=== PATIENT | male | born 1955 | race Caucasian/White ===

== ENCOUNTER → 2017-06-01 | Outpatient (CLI) | payer BC, OTHER ==
[~2017-06-01] MED LIST: ANDROGEL1% T; BISOPROLOL10 MG PO; BUPROPION100 MG PO; LISINOPRIL/HCTZ1 TA3 PO; LOVASTATIN20 MG PO
[2017-06-02 15:07] LABS: TESTOSTERONE FREE, (DIRECT) <0.2 pg/mL (6.6-18.1)
== END | disposition home or self-care (01) ==
LOC: LAB 15:48
PROVIDERS: Internal Medicine
DX: E29.1 Testicular hypofunction (principal); E29.9 Testicular dysfunction, unspecified

== ENCOUNTER → 2017-06-09 | Outpatient (CLI) | payer BC, OTHER ==
[2017-06-10 09:07] LABS: ALBUMIN SERUM 4.2 g/dL (3.6-4.8)
[2017-06-10 10:09] LABS: SEX HORMONE BINDING GLOBULIN 18.7 nmol/L (19.3-76.4)
== END ==
LOC: LAB 04:35
PROVIDERS: Internal Medicine
DX: E29.1 Testicular hypofunction (principal)

== ENCOUNTER → 2017-06-10 | Outpatient (CLI) | payer BC, OTHER ==
[2017-06-11 20:09] LABS: TESTOSTERONE FREE, (DIRECT) 0.7 pg/mL (6.6-18.1)
== END | disposition home or self-care (01) ==
LOC: LAB 04:27
PROVIDERS: Internal Medicine
DX: E29.1 Testicular hypofunction (principal)

== ENCOUNTER → 2018-05-17 | Outpatient (CLI) | payer BC, OTHER ==
[2018-05-20 15:07] LABS: PROSTATE SPECIFIC AG FREE 1.21 ng/mL; PROSTATE SPECIFIC AG, SERUM 5.4 ng/mL (0.0-4.0)
== END | disposition home or self-care (01) ==
LOC: LAB 12:00
PROVIDERS: Urology
DX: R97.20 Elevated prostate specific antigen [PSA] (principal)

== ENCOUNTER 2019-05-08 22:39 | Inpatient (IN) | payer BC, OTHER ==
[~2019-05-08] VITALS: Ht 182.8 cm; Wt 112.5 kg
--- NOTE | ~2019-05-08 | EKG ---
[place], [place] ELECTROCARDIOGRAM REPORT NAME: RAMÓN MACIEL UNIT #: [id number] ROOM: 532 DOCTOR: EPIPHANY DRAFT REPORT BIRTHDATE: [birth year] [facility] Test Date: 2019-05-09 Test Time: 10:53:26 Pat Name: RAMÓN MACIEL Department: Room: 532 1 Gender: M Corporate Scheduler: : 1955 Requested By: ANGELA MCFARLAND Order Number: [id number] Reading MD: Neeta Cleary MD Measurements Intervals Ladd Rate: 78 P: 40 OR: 193 QRS: -24 QRSD: 109 T: 3 QT: 371 QTc: 423 Interpretive Statements Sinus rhythm Borderline left axis deviation Electronically Signed On 05-09-2019 8:42:26 PDT by Neeta Cleary MD CM:EKGRPT:ELECTROCARDIOGRAM REPORT [id number] ANGELA MCFARLAND MD EPIPHANY DRAFT REPORT ANGELA MCFARLAND MD
[2019-05-08 22:39] VITALS: BP 146/80
[2019-05-08 23:01] LABS: BASO % 0.4 % (0.0-1.0); EOS # 0.2 10*3/uL (0.0-0.4); EOS % 1.6 % (1.0-4.0); HEMATOCRIT 42.8 % (42.0-52.0); LYMPH # 1.2 10*3/uL (1.3-4.4); MEAN CELL VOLUME 90.5 fl (80.0-94.0); MEAN CORPUSCULAR HGB 29.6 pg (27.0-31.0); MEAN CORPUSCULAR HGB CONC 32.7 g/dl (33.0-37.0); MEAN PLATELET VOLUME 9.9 fl (9.6-12.3); MONO # 1.1 10*3/uL (0.1-1.0); MONO % 9.7 % (3.0-9.0); NEUT # 8.4 10*3/uL (2.3-7.9); NEUT % 76.9 % (47.0-73.0); PLATELET COUNT AUTOMATED 207 10*3/uL (130-400); RED BLOOD COUNT 4.73 10*6/uL (4.50-5.90); RED CELL DISTRI WIDTH 13.3 % (0-14.5); WHITE BLOOD COUNT 10.9 10*3/uL (4.8-10.8)
[2019-05-08 23:16] LABS: ALBUMIN 3.5 gm/dl (3.1-4.5); ALKALINE PHOSPHATASE 67 U/L (45-117); BUN 24 mg/dl (7-24); CHLORIDE 107 mmol/L (98-107); CREATININE 1.22 mg/dL (0.70-1.30); LIPASE 80 U/L (73-393); POTASSIUM 3.6 mmol/L (3.5-5.1); SGOT/AST 15 IU/L (3-35); SGPT/ALT 24 U/L (12-78); SODIUM 139 mmol/L (136-145); TOTAL PROTEIN 7.1 gm/dL (6.4-8.2)
[2019-05-08 23:33] LABS: BILIRUBIN NEGATIVE (NEGATIVE); BLOOD NEGATIVE (NEGATIVE); CLARITY CLEAR (CLEAR); COLOR YELLOW (YELLOW); GLUCOSE NEGATIVE (NEGATIVE); KETONE TRACE (NEGATIVE); LEUKO ESTERASE NEGATIVE (NEGATIVE); NITRITE NEGATIVE (NEGATIVE); SPECIFIC GRAVITY 1.025 (1.005-1.030); UROBILINOGEN 0.2 E.U./dl (0.2-1.0)
[2019-05-08 23:39] LABS: WBC 0-2 wbc/hpf (0-5)
--- NOTE | 2019-05-08 23:55 | NUR ---
PT TO CT. CONDITION STABLE.
[2019-05-09] VITALS (11 sets, daily range): BP systolic 117–151; BP diastolic 60–88
--- NOTE | 2019-05-09 01:25 | NUR ---
A 63, admitted to 5E, under the services of AVRIL Paula DO with a diagnosis of APPENDICITIS. Chief complaint is ABD PAIN. Patient arrived via stretcher from ER. Monitor applied. Initial assessment completed. Vital signs taken and recorded. AVRIL PAULA DO notified of admission to the unit. Orders received. See assessment for past medical history, medications and allergies. Patient and/or family oriented to unit. [facility] visitation policy reviewed. Clothing/patient valuable form completed. AISLINN RATLIFF
[2019-05-09] MEDS ORDERED: BISOPROLOL FM5 MG PO (01:34)
[2019-05-09] MEDS ORDERED: TELMISARTAN-HC1 EACH PO (01:34)
[2019-05-09] MEDS ORDERED: AMLODIPINE BESY10 MG PO (01:35)
[2019-05-09] MEDS ORDERED: TESTOSTERO30 MG/1.5 T (01:36)
[2019-05-09] MEDS ORDERED: BUPROPION ER100 M1 PO (01:37)
[2019-05-09] MEDS ORDERED: LOVASTATIN40 MG PO (01:37)
[2019-05-09] MEDS ORDERED: IBU800 M1 PO (01:38)
--- NOTE | 2019-05-09 01:45 | NUR ---
NOTIFIED OF PATIENT'S ARRIVAL ON FLOOR. STATES HE WILL PUT IN NEW ADMISSION ORDERS. ALSO NOTIFIED OF PT'S C/O RLQ PAIN. INSTRUCTED TO ORDER 2MG IV MORPHINE X1 DOSE NOW.
--- NOTE | 2019-05-09 03:52 | NUR ---
NOTIFIED OF PT'S C/O PAIN WITHOUT RELIEF FROM MORPHINE. AWARE PT REQUESTING MOTRIN, BUT IS NPO. INSTRUCTED TO ORDER 1MG IV DILAUDID X1 DOSE NOW.
--- NOTE | 2019-05-09 04:12 | NUR ---
ONE TIME DOSE OF DILAUDID ADMINISTERED PER ORDER FOR C/O ABD PAIN RATED 8/10. WILL MONITOR EFFECTIVENESS. CALL LIGHT IN REACH.
--- NOTE | 2019-05-09 05:42 | NUR ---
PT STATES EARLIER DILAUDID HELPED FOR A SHORT WHILE, BUT IS NOW C/O 9/10 PAIN IN ABDOMEN, SPECIFICALLY RLQ. PT MEDICATED WITH IV MORPHINE PER PRN ORDER. WILL NOTIFY DR OF CONTINUED PAIN.
[2019-05-09 05:52] LABS: BASO % 0.2 % (0.0-1.0); EOS # 0.1 10*3/uL (0.0-0.4); EOS % 1.4 % (1.0-4.0); HEMATOCRIT 40.3 % (42.0-52.0); HEMOGLOBIN 13.2 g/dl (14.0-18.0); LYMPH # 0.8 10*3/uL (1.3-4.4); LYMPH % 8.5 % (27.0-41.0); MEAN CELL VOLUME 91.4 fl (80.0-94.0); MEAN CORPUSCULAR HGB 29.9 pg (27.0-31.0); MEAN CORPUSCULAR HGB CONC 32.8 g/dl (33.0-37.0); MEAN PLATELET VOLUME 10.2 fl (9.6-12.3); MONO % 10.7 % (3.0-9.0); NEUT # 7.3 10*3/uL (2.3-7.9); NEUT % 78.9 % (47.0-73.0); PLATELET COUNT AUTOMATED 188 10*3/uL (130-400); RED BLOOD COUNT 4.41 10*6/uL (4.50-5.90); RED CELL DISTRI WIDTH 13.4 % (0-14.5); WHITE BLOOD COUNT 9.2 10*3/uL (4.8-10.8)
--- NOTE | 2019-05-09 06:15 | NUR ---
NOTIFIED OF CONSULT. DISCUSSED SYMPTOMS, ADMITTING DX, & CT RESULTS. STATES HE WILL BE TO HOSPITAL IN ABOUT 1 HR AND WILL SEE PT.
--- NOTE | 2019-05-09 06:20 | NUR ---
NOTIFIED OF PATIENT'S CONTINUED C/O PAIN DESPITE IV MORPHINE & IV DILAUDID. INSTRUCTED TO ORDER 1 MG IV DILAUDID Q3H PRN. INSTRUCTED TO KEEP PRN IV MORPHINE ORDER IS.
[2019-05-09 06:33] LABS: BUN 18 mg/dl (7-24); CHLORIDE 108 mmol/L (98-107); CHOLESTEROL 146 mg/dL (<200); CREATININE 1.17 mg/dL (0.70-1.30); HDL CHOLESTEROL 57 mg/dl (40-60); LDL CHOLESTEROL 73 mg/dL (9-159); PHOSPHOROUS 3.4 mg/dL (2.5-4.9); POTASSIUM 3.9 mmol/L (3.5-5.1); SODIUM 143 mmol/L (136-145); TRIGLYCERIDES 78 mg/dl (<150); VLDL CHOLESTEROL 16 mg/dL (6-40)
--- NOTE | 2019-05-09 07:03 | NUR ---
PT MEDICATED WITH IV DILAUDID FOR C/O ABD PAIN RATED 9/10 & IV ZOFRAN FOR C/O NAUSEA. WILL MONITOR EFFECTIVENESS. PT REFUSING TEDs/SCDs AT THIS TIME.
[2019-05-09 08:23] LABS: VITAMIN D, 25-HYDROXY 83.1 ng/mL (30-100)
--- NOTE | 2019-05-09 09:46 | NUR ---
CALLED DR MISHRA TO LET HIM KNOW THAT PATIENT IS STILL HAVING A LOT OF PAIN. RECEIVED NEW ORDERS.
--- NOTE | 2019-05-09 09:47 | NUR ---
PATIENT PREPPED FOR SURGERY. I EXPLAINED TO FAMILY AND PATIENT THAT DOCTOR WILL SPEAK WITH HIM PRIOR TO SURGERY.
--- NOTE | 2019-05-09 10:34 | NUR ---
PATIENT MEDICATED WITH 1MG DILAUDID FOR PAIN IN HIS RIGHT LOWER QUAD RATED 10/10
--- NOTE | 2019-05-09 16:08 | NUR ---
PT AT BEDSIDE AND STOOD PT. PT CM ALARMED FOR HR IN 150"S WHILE STANDING AND PT C/O "NOT FEELING WELL WHILE STANDING" PT MEDICATED 20 MIN PRIOR WITH [address] MCCARTY AWARE. PT RETURNED TO BED AND AFTER VAGAL MANEUVER AND HR DROPPED BACK TO 120"S. PT DENIES CP/PRESSURE. WAS SOB WHILE STANDING BUT DENIES SOB @ REST.WILL CONTINUE TO MONITOR.CALL LIGHT IN REACH.
--- NOTE | 2019-05-09 16:43 | NUR ---
PT RETURNED TO FLOOR VIA BED. ASSESSMENT COMPLETED.RESPS EASY ON RA.VOICES NO NEEDS AT THIS TIME. CALL LIGHT IN REACH.
--- NOTE | 2019-05-09 22:50 | NUR ---
IV DILAUDID ADMINISTERED SLOWLY FOR C/O PAIN IN ABDOMEN RATED 6/10. PT STATES HE FEELS SO MUCH BETTER THAN HE DID LAST NIGHT/THIS MORNING, BUT IS NOW EXPERIENCING SORENESS NEAR INCISIONS. DRESSINGS TO INCISION SITES INTACT. UMBILICUS INCISION HAS SMALL AMOUNT OF SANGUINEOUS DRAINAGE NOTED. MAYDA DRAIN INTACT, 90 CCs OUT AT 2200. WILL CONTINUE TO MONITOR. CALL LIGHT LEFT IN REACH.
[2019-05-10] VITALS: BP 127/73
--- NOTE | 2019-05-10 00:11 | NUR ---
PT STATES EARLIER MEDICATION WAS EFFECTIVE. RATING ABD PAIN 3/10. IV TYLENOL INFUSION INITIATED AT THIS TIME. WILL MONITOR EFFECTIVENESS. CALL LIGHT LEFT IN REACH.
[2019-05-10 03:55] VITALS: BP 130/73
--- NOTE | 2019-05-10 04:13 | NUR ---
IV TORADOL ADMINISTERED PER ORDER FOR C/O PAIN IN ABDOMEN RATED 5/10. WILL MONITOR EFFECTIVENESS. CALL LIGHT LEFT IN REACH.
--- NOTE | 2019-05-10 05:03 | NUR ---
EARLIER TORADOL EFFECTIVE PER PT. RATING PAIN IN ABD 01/09. SCHEDULED IV TYLENOL ADMINISTERED AT THIS TIME PER ORDER. WILL MONITOR. CALL LIGHT LEFT IN REACH.
[2019-05-10 06:16] LABS: BASO % 0.1 % (0.0-1.0); HEMATOCRIT 36.3 % (42.0-52.0); HEMOGLOBIN 11.9 g/dl (14.0-18.0); LYMPH # 0.5 10*3/uL (1.3-4.4); LYMPH % 4.1 % (27.0-41.0); MEAN CORPUSCULAR HGB 29.8 pg (27.0-31.0); MEAN CORPUSCULAR HGB CONC 32.8 g/dl (33.0-37.0); MEAN PLATELET VOLUME 10.4 fl (9.6-12.3); MONO # 0.9 10*3/uL (0.1-1.0); NEUT # 9.9 10*3/uL (2.3-7.9); NEUT % 87.5 % (47.0-73.0); PLATELET COUNT AUTOMATED 184 10*3/uL (130-400); RED BLOOD COUNT 3.99 10*6/uL (4.50-5.90); RED CELL DISTRI WIDTH 13.8 % (0-14.5); WHITE BLOOD COUNT 11.3 10*3/uL (4.8-10.8)
[2019-05-10 06:54] LABS: ALBUMIN 2.7 gm/dl (3.1-4.5); BUN 19 mg/dl (7-24); CHLORIDE 108 mmol/L (98-107); CREATININE 1.28 mg/dL (0.70-1.30); POTASSIUM 4.2 mmol/L (3.5-5.1); SGOT/AST 14 IU/L (3-35); SGPT/ALT 18 U/L (12-78); SODIUM 140 mmol/L (136-145)
[2019-05-10 06:57] LABS: ALKALINE PHOSPHATASE 52 U/L (45-117); TOTAL PROTEIN 6.1 gm/dL (6.4-8.2)
[2019-05-10 08:00] VITALS: BP 128/78
--- NOTE | 2019-05-10 12:40 | NUR ---
Packaging Inspector in to talk to patient. Patient states lives at HOME with . There are FEW steps in the home. Physician: YEN [facility]: [facility] Home health services: NONE Patient's level of ADLs: INDEPENDENT Patient has working utilities: YES DME: NONE Follow-up physician's appointment after d/c: PT STATES HE HAS AN APPOINTMENT ON THURSDAY Does patient want to access PORTAL?: NO Discharge plan PT LIVES AT HOME WITH HIS AND IS INDEPENDENT IN CARE. STATES HE WILL GO HOME ON DISCHARGE WITHOUT ANY NEEDS. WILL CONTINUE TO FOLLOW. PT STATES HE WILL HAVE A RIDE. . PARVIZ DRAKE
--- NOTE | 2019-05-10 13:04 | NUR ---
PT MEDICATED WITH PO NORCO AT THIS TIME PER ORDER FOR COMPLAINTS OF ABD PAIN 03/11. WILL MONITOR FOR EFFECTIVENESS.
[2019-05-10 16:00] VITALS: BP 114/58
[2019-05-10] MEDS ORDERED: AUGMENTIN 875-875 MG PO (17:39)
[2019-05-10] MEDS ORDERED: ULTRAM50 MG PO (17:39)
--- NOTE | 2019-05-10 18:43 | NUR ---
Discharge instructions reviewed with patient/family. Patient receptive and verbalizes understanding. Follow-up care arranged. Written instructions given to patient/family. PT REFUSED WOUND PHOTOS. MAYDA REMAINS; PATIENT INFORMED TO CALL 'S OFFICE FOR REMOVAL OF DRAIN. PRESCRIPTIONS GIVEN. PATIENT OFFERED WHEELCHAIR BUT AMBULATED OFF FLOOR. HEPLOCK DISCONTINUED. MECHELLE ODONNELL
== END 2019-05-10 18:43 | disposition home or self-care (01) | DRG 339 ==
LOC: ED 22:39 → EDHOLD 05-09 00:59 → 5E 05-09 00:59
PROVIDERS: Internal Medicine; Student in an Organized Health Care Education/Training Program; ADMIT Internal Medicine
PROC: 0DTJ4ZZ Resection of Appendix, Percutaneous Endoscopic Approach (ICD-10-PCS; principal; 2019-05-09)
DX: K35.33 Acute appendicitis with perforation, localized peritonitis, and gangrene, with abscess (principal); E44.0 Moderate protein-calorie malnutrition; F41.9 Anxiety disorder, unspecified; I10 Essential (primary) hypertension; K35.31 Acute appendicitis with localized peritonitis and gangrene, without perforation; N40.0 Benign prostatic hyperplasia without lower urinary tract symptoms; E78.5 Hyperlipidemia, unspecified; Z91.040 Latex allergy status; Z82.49 Family history of ischemic heart disease and other diseases of the circulatory system; Z82.3 Family history of stroke; Z85.828 Personal history of other malignant neoplasm of skin; Z82.0 Family history of epilepsy and other diseases of the nervous system; Z79.899 Other long term (current) drug therapy; Z68.33 Body mass index [BMI] 33.0-33.9, adult

== ENCOUNTER → 2023-07-23 | Outpatient (CLI) | payer OTHER ==
[~2023-07-23] MED LIST changes: +AMLODIPINE BESY10 MG PO; +AUGMENTIN 875-875 MG PO; +BISOPROLOL FM5 MG PO; +BUPROPION ER100 M1 PO; +IBU800 M1 PO; +LOVASTATIN40 MG PO; +TELMISARTAN-HC1 EACH PO; +TESTOSTERO30 MG/1.5 T; +ULTRAM50 MG PO
== END | disposition home or self-care (01) ==
LOC: CP 00:14
PROVIDERS: ATTEND Internal Medicine
DX: J40 Bronchitis, not specified as acute or chronic (principal)

== ENCOUNTER → 2024-02-22 | Outpatient (CLI) | payer OTHER | END | disposition home or self-care (01) | LOC: CARD 01:51 | PROVIDERS: ATTEND Internal Medicine | DX: I08.3 Combined rheumatic disorders of mitral, aortic and tricuspid valves (principal); I48.91 Unspecified atrial fibrillation ==

== ENCOUNTER → 2024-03-30 | Outpatient (CLI) | payer OTHER ==
[~2024-03-30] MED LIST changes: -BUPROPION ER100 M1 PO; +ELIQUIS2.5 M1 PO; +Regadenoson 0.4 MG/5 ML SYR IV ONE; +SILDENAFIL CITR25 MG PO; +TAMSULOSIN HCL0.4 MG PO; +TELMISARTAN-HC1 EAC1 PO; -TELMISARTAN-HC1 EACH PO; +Technetium Tc 99M Tetrofosmi 0.23 MG KIT IJ SCH; +WELLBUTRIN SR100 MG PO
== END | disposition home or self-care (01) ==
LOC: CARD 00:03
PROVIDERS: ATTEND Internal Medicine Cardiovascular Disease
DX: I48.91 Unspecified atrial fibrillation (principal); R94.31 Abnormal electrocardiogram [ECG] [EKG]

== ENCOUNTER → 2024-04-06 | Outpatient (CLI) | payer OTHER ==
[~2024-04-06] MED LIST changes: -Regadenoson 0.4 MG/5 ML SYR IV ONE; -Technetium Tc 99M Tetrofosmi 0.23 MG KIT IJ SCH
== END | disposition home or self-care (01) ==
LOC: RAD 16:22
PROVIDERS: ATTEND Family Medicine
DX: M51.36 Other intervertebral disc degeneration, lumbar region (principal); M48.07 Spinal stenosis, lumbosacral region

== ENCOUNTER → 2024-06-01 | Outpatient (CLI) | payer OTHER | END | disposition home or self-care (01) | LOC: MRI 00:44 | PROVIDERS: ATTEND Internal Medicine | DX: M47.817 Spondylosis without myelopathy or radiculopathy, lumbosacral region (principal); M51.37 Other intervertebral disc degeneration, lumbosacral region; M48.061 Spinal stenosis, lumbar region without neurogenic claudication ==